=== PATIENT | male | born 1985 | race African-American/Black ===

== ENCOUNTER 2016-03-09 18:01 | Emergency (ER) | payer OTHER ==
[~2016-03-09] VITALS: Ht 175.3 cm; Wt 95.0 kg
[~2016-03-09 18:01] MED LIST: FLOMAX0.4 MG PO; NAPROSYN500 MG PO; NORCO 5/3251 TABLET PO
[2016-03-09 19:07] LABS: ADD MIUA? YES; BILIRUBIN NEGATIVE; BLOOD LARGE; COLOR YELLOW ((YELLOW)); GLUCOSE (STRIP) NEGATIVE; KETONES NEGATIVE; LEUKOCYTES MODERATE; NITRITE NEGATIVE; PH, URINE 6.5 (5-8); PROTEIN (STRIP) NEGATIVE; SPECIFIC GRAVITY 1.011 (1.000-1.030); UROBILINOGEN 0.2 MG/DL (0.2-1.0)
[2016-03-09 19:27] LABS: BACTERIA 2+; CASTS PRESENT /LPF; CRYSTALS NONE SEEN; EPITHELIAL CELLS 1+; HYALINE CASTS 0-5 /LPF; MUCUS 1+; UCUL ADDED? YES
[2016-03-09 19:28] LABS: RED BLOOD CELLS 20-30 /HPF (0-5)
[2016-03-09 19:43] LABS: MCH 28.8 PG (29.0-34.0); MCHC 35.7 G/DL (30.0-36.0); MCV 80.8 FL (86-99); MEAN PLAT.VOLUME 11.2 uM^3 (9.0-12.4); PLATELET COUNT 135 K/uL (156-360); RBC DIS.WIDTH-CV 12.2 % (11.8-14.6); RBC DIS.WIDTH-SD 35.2 % (39-53); WHITE BLOOD COUNT 6.7 K/uL (4.1-10.2)
[2016-03-09 19:52] LABS: CHLORIDE 103 mEq/L (99-109); POTASSIUM 4.1 mEq/L (3.7-5.4); SODIUM 136 mEq/L (136-147)
[2016-03-09 19:54] LABS: GLUCOSE 95 mg/dL (70-99)
[2016-03-09 19:55] LABS: ANION GAP 7 MEQ/L (2-14)
[2016-03-09 19:56] LABS: TOTAL BILIRUBIN 1.1 mg/dL (0.0-1.0)
[2016-03-09 19:57] LABS: ALKALINE PHOSPHATASE 40 IU/L (3-129)
[2016-03-09 19:58] LABS: GFR ESTIMATE (CALCULATED) 51 mL/min/
[2016-03-09 19:59] LABS: UREA NITROGEN (BUN) 18 mg/dL (9-23)
[2016-03-09] MEDS ORDERED: CIPRO500 MG PO (21:05)
[2016-03-09] MEDS ORDERED: NORCO 5/3251 TABLET PO (21:05)
[2016-03-09 21:49] VITALS: BP 115/67
== END 2016-03-09 21:50 | disposition left against medical advice (07) ==
LOC: EME 18:01 → RME 18:01
PROVIDERS: Physician Assistant
DX: N20.0 Calculus of kidney (principal); N17.9 Acute kidney failure, unspecified; N12 Tubulo-interstitial nephritis, not specified as acute or chronic; Z87.442 Personal history of urinary calculi
CPT/HCPCS: 80053; 81003; 85027; 87086; 99281; 99284; J1885